=== PATIENT | male | born 1970 | race Caucasian/White ===

== ENCOUNTER 2018-10-21 13:24 | Emergency (ER) | payer SELFPAY ==
[~2018-10-21] VITALS: Ht 177.8 cm; Wt 65.8 kg
== END 2018-10-21 14:48 | disposition home or self-care (01) ==
LOC: ER 13:24
DX: S01.01XA Laceration without foreign body of scalp, initial encounter (principal); F17.200 Nicotine dependence, unspecified, uncomplicated; Z88.8 Allergy status to other drugs, medicaments and biological substances; Y08.89XA Assault by other specified means, initial encounter
CPT/HCPCS: 99282